=== PATIENT | female | born 1955 | race Caucasian/White ===

== ENCOUNTER 2023-07-10 10:48 | Emergency (ER) | payer MEDICARE, OTHER ==
[2023-07-10] MEDS ORDERED: Acetaminophen 325 MG Tab PO ONE (12:02)
== END 2023-07-10 14:45 | disposition home or self-care (01) ==
LOC: JP.ED 10:48
DX: S09.90XA Unspecified injury of head, initial encounter (principal); S09.93XA Unspecified injury of face, initial encounter; K21.9 Gastro-esophageal reflux disease without esophagitis; I10 Essential (primary) hypertension; E78.00 Pure hypercholesterolemia, unspecified; Z88.0 Allergy status to penicillin; Z88.2 Allergy status to sulfonamides; Z88.8 Allergy status to other drugs, medicaments and biological substances; Z91.041 Radiographic dye allergy status; W19.XXXA Unspecified fall, initial encounter
CPT/HCPCS: 70450; 70450-26; 70486; 70486-26; 72125; 72125-26; 76377; 76377-26; 99283; 99284; A9270-GY